=== PATIENT | female | born 1950 | race Caucasian/White ===

== ENCOUNTER → 2016-09-19 | Outpatient (CLI) | payer MEDICARE, BC ==
--- NOTE | 2016-09-20 14:26 | MM ---
Reason for exam: screening (asymptomatic). Last mammogram was performed 1 year and 1 month ago. History: Patient is postmenopausal and has history of other cancer at age 46. Family history of breast cancer in aunt. Physical Findings: A clinical breast exam by your physician is recommended on an annual basis and results should be correlated with mammographic findings. MG 3D Screening Mammo W/Cad Bilateral CC and MLO view(s) were taken. Prior study comparison: August 20, 2015, bilateral MG screening mammo w CAD. July 27, 2014, bilateral MG screening mammo w CAD. There are scattered fibroglandular densities. Finding: There are typically benign round calcifications in both breasts. There is no discrete abnormality. ASSESSMENT: Benign, BI-RAD 2 RECOMMENDATION: Routine screening mammogram of both breasts in 1 year.
== END | disposition home or self-care (01) ==
LOC: RADMAMWWP 09:23
PROVIDERS: ATTEND Internal Medicine Hematology & Oncology
DX: Z12.31 Encounter for screening mammogram for malignant neoplasm of breast (principal)
CPT/HCPCS: 77063; G0202

== ENCOUNTER → 2017-07-10 | Outpatient (CLI) | payer MEDICARE, BC ==
[2017-07-10 20:47] LABS: Blood Urea Nitrogen 22 mg/dL (7-17); Non-African American GFR(MDRD) >60 (>60 ml/min/1.73 sqM)
--- NOTE | 2017-07-10 23:09 | MR ---
EXAMINATION TYPE: MR knee RT wo/w con DATE OF EXAM: 07/10/2017 COMPARISON: NONE HISTORY: Rt knee pain/posterior, distal femoral lesion TECHNIQUE: Multiplanar, multisequence images of the knee is performed with 7.5 mL intravenous Gadavis t gadolinium contrast. FINDINGS: The anterior and posterior cruciate ligaments appear intact. There is mild knee joint effusion. There is mild increased signal in the inferior surface of the posterior horn medial meniscus. The lateral meniscus appears intact. The collateral ligaments are intact. There is very slight increased signal o n the T2 images in the subchondral medial tibial condyle. There is a 3.5 cm rounded lesion involving a large area of the lateral femoral condyle. The lesion edwards s a well-defined border with short zone of transition. There is mixed signal within the lesion. There is no bone edema seen surrounding the lesion. The contrast images show no pathologic enhancement. Th ere are large areas of decreased signal in the lesion on T1 and T2 images consistent with calcificati on. I do not have the plain x-ray for correlation. IMPRESSION: There is mild subchondral edema in the medial tibial condyle with a horizontal tear of the inferior s urface of the posterior horn of the medial meniscus. No evidence of ligamentous tear. Mild subcutaneo us edema over the medial collateral ligament. Nonenhancing lesion in the lateral femoral condyle with overall benign features. I would consider mor e likely a bone infarct. Small knee joint effusion.
== END | disposition home or self-care (01) ==
LOC: RADMRIMAIN 20:02
PROVIDERS: ATTEND Orthopaedic Surgery
DX: S83.241A Other tear of medial meniscus, current injury, right knee, initial encounter (principal)
CPT/HCPCS: 82565; 84520; 36415; 73723; A9581

== ENCOUNTER → 2017-08-28 | Outpatient (CLI) | payer MEDICARE, BC ==
--- NOTE | 2017-08-29 12:50 | ECHOF ---
Referral Reason:R01.1 Murmur MEASUREMENTS -------- HEIGHT: 154.9 cm WEIGHT: 78.5 kg BP: 143/71 RVIDd: 2.6 cm (< 3.3) IVSd: 1.0 cm (0.6 - 1.1) LVIDd: 4.9 cm (3.9 - 5.3) LVPWd: 1.1 cm (0.6 - 1.1) IVSs: 1.1 cm LVIDs: 4.2 cm LVPWs: 1.4 cm LAESV Index (A-L): 21.32 ml/m Ao Diam: 3.0 cm (2.0 - 3.7) AV Cusp: 0.8 cm (1.5 - 2.6) LA Diam: 3.4 cm (2.7 - 3.8) MV E Solomon: 1.05 m/s MV DecT: 171 ms MV A Solomon: 0.39 m/s MV E/A Ratio: 2.65 AV maxP.10 mmHg AV meanP.63 mmHg AR PHT: 424 ms RAP: 5.00 mmHg RVSP: 11.68 mmHg FINDINGS -------- Sinus rhythm. This was a technically adequate study. The left ventricular size is normal. Left ventricular wall thickness is normal. There is mild lani bal hypokinesis of LV . Overall left ventricular systolic function is mild-moderately impaired with , an EF between 40 - 45 %. The right ventricle is normal in size and function. Normal LA size by volume 22+/-6 ml/m2. The right atrium is normal in size. Aortic valve is trileaflet and is moderately thickened. There is [id number]-zn-[id number] aortic regurgitat ion. There is mild aortic stenosis present. Peak/mean gradient across the Aortic Valve is 15.10mm Hg / 9.63mmHg. The mitral valve leaflets are mildly thickened. There is trace to mild mitral regurgitation. Trace tricuspid regurgitation present. Right ventricular systolic pressure is normal at < 35 mmHg. There is no evidence of pulmonary hypertension. The pulmonic valve was not well visualized. The aortic root size is normal. Normal inferior vena cava with normal inspiratory collapse consistent with estimated right atrial pre ssure of 5 mmHg. The pericardium is normal. There is no pericardial effusion. CONCLUSIONS -------- 1. Sinus rhythm. 2. This was a technically adequate study. 3. The left ventricular size is normal. 4. Left ventricular wall thickness is normal. 5. There is mild global hypokinesis of LV . 6. Normal LA size by volume 22+/-6 ml/m2. 7. Aortic valve is trileaflet and is moderately thickened. 8. There is tzxl-ld-nlcbglhh aortic regurgitation. 9. There is mild aortic stenosis present. 10. Peak/mean gradient across the Aortic Valve is 15.10mmHg / 9.63mmHg. 11. The mitral valve leaflets are mildly thickened. 12. There is trace to mild mitral regurgitation. 13. Trace tricuspid regurgitation present. 14. Right ventricular systolic pressure is normal at < 35 mmHg. 15. There is no evidence of pulmonary hypertension. 16. The pulmonic valve was not well visualized. 17. The aortic root size is normal. 18. There is no pericardial effusion. CASH APPLICATIONS SPECIALIST: Neftali Martinez RDCS
== END | disposition home or self-care (01) ==
LOC: RADECHMAIN 15:45
PROVIDERS: ATTEND Internal Medicine
DX: I35.1 Nonrheumatic aortic (valve) insufficiency (principal); I35.0 Nonrheumatic aortic (valve) stenosis; I50.1 Left ventricular failure, unspecified
CPT/HCPCS: 93306

== ENCOUNTER → 2017-10-12 | Outpatient (CLI) | payer MEDICARE, BC ==
--- NOTE | 2017-10-12 16:33 | BD ---
EXAMINATION TYPE: MG DEXA axial skeleton. DATE OF EXAM: 10/12/2017 COMPARISON: 02/22/2004 CLINICAL HISTORY: Height: 61 IN Weight: 169 LBS FRAX RISK QUESTIONS: Alcohol (3 or more units per day): NO Family History (Parent hip fracture): NO Glucocorticoids (More than 3mos): NO (Ex: prednisone, prednisolone, methylprednisolone, dexamethasone, and hydrocortisone). History of Fracture in Adulthood: NO Secondary Osteoporosis: 1. Type 1 Diabetes: NO 2. Hyperthyroidism: NO 3. Menopause before 45: YES AGE 36 PART HYST 4. Malnutrition: NO 5. Chronic liver disease: NO Rheumatoid Arthritis: NO Current Tobacco Use: NO RISK FACTORS HISTORY OF: History of Wrist Fracture: YES LEFT When: AGE 16 Active: YES Postmenopausal woman: AGE 36 MEDICATIONS: Additional Medications: ADDEROL Additional History: LYMPHOMA WITH CHEMO AND RADIATION AGE 46 EXAM MEASUREMENTS: Bone mineral densitometry was performed using the Delectable System. Bone mineral density as measured about the Lumbar spine is: ----- L1-L4(G/cm2): 1.078 T Score Values are as follows: ----- L2: -0.7 ----- L3: -0.2 ----- L4: -1.1 ----- L1-L4: -0.8 Bone mineral density has: Decreased -3.3% since study of: 02/22/2004 Bone mineral density about the R hip (g/cm2): 0.964 Bone mineral density about the L hip (g/cm2): 0.923 T Score values are as follows: -----R Neck: -0.5 -----L Neck: -0.8 -----R Total: -0.1 -----L Total: -0.5 Bone mineral density has: Decreased -8.8% since study of: 02/22/2004 IMPRESSION: Normal (Values between +1 and -1 indicate normal bone mass). Consider repeating this study in 5 year s or sooner if there is some new clinical indication. NOTE: T-SCORE=SD OF THE YOUNG ADULT MEAN.
== END | disposition home or self-care (01) ==
LOC: RADBDWWP 06:56
PROVIDERS: ATTEND Obstetrics & Gynecology
DX: Z13.820 Encounter for screening for osteoporosis (principal)
CPT/HCPCS: 77080

== ENCOUNTER → 2017-12-07 | Outpatient (CLI) | payer MEDICARE, BC ==
--- NOTE | 2017-12-10 13:32 | MM ---
Reason for exam: screening (asymptomatic). Last mammogram was performed 1 year and 3 months ago. History: Patient is postmenopausal and has history of other cancer at age 46. Family history of breast cancer in aunt. Physical Findings: A clinical breast exam by your physician is recommended on an annual basis and results should be correlated with mammographic findings. MG 3D Screening Mammo W/Cad Bilateral CC and MLO view(s) were taken. Prior study comparison: September 19, 2016, bilateral MG 3d screening mammo w/cad. August 20, 2015, bilateral MG screening mammo w CAD. There are scattered fibroglandular densities. No significant changes when compared with prior studies. ASSESSMENT: Benign, BI-RAD 2 RECOMMENDATION: Routine screening mammogram of both breasts in 1 year.
== END | disposition home or self-care (01) ==
LOC: RADMAMWWP 07:04
PROVIDERS: ATTEND Internal Medicine
DX: Z12.31 Encounter for screening mammogram for malignant neoplasm of breast (principal)
CPT/HCPCS: 77063; 77067

== ENCOUNTER → 2018-01-14 | Day surgery (SDC) | payer MEDICARE, BC ==
[2018-01-11 08:26] VITALS: BMI 32.1
--- NOTE | 2018-01-13 20:02 | HP ---
HISTORY AND PHYSICAL CHIEF COMPLAINT: Fluid in both ears. HISTORY OF PRESENT ILLNESS: This patient is a 67-year-old female who was recently seen in my office complaining of a plugged sensation in both ears, which has been there for several weeks. At the time that the patient was seen in my office, clinical examination of the ears revealed chronic bilateral serous otitis media so-called glue ear. The patient was placed on several courses of oral antibiotics and oral steroids. On her last visit for a followup appointment, she stated that the plugged feeling had not improved. Clinical examination of the ears revealed the patient still had chronic bilateral serous otitis media so-called glue ear. It was recommended the patient undergo a bilateral myringotomy with insertion of ventilation tube. The patient was also advised that if in fact, at the time of the surgery, there was no fluid found in either middle ear space. Then, either no tube would be inserted or a pediatric Tytan tube would be inserted. Her procedure will be done either under general anesthesia or IV sedation, depending upon the anesthesia department's preference. PAST MEDICAL HISTORY: Past medical history reveals she has ALLERGIES TO VISCERAL. MEDICATIONS: Current medications include Adderall. PREVIOUS SURGERIES: Previous surgeries include tonsillectomy, adenoidectomy, biopsy of axillary lymph nodes, hysterectomy, arthroscopic knee surgery, and bunion surgery. REVIEW OF SYSTEMS: Completely unremarkable. PHYSICAL EXAMINATION: The patient is a 67-year-old female who was alert and cooperative. HEENT examination: Patient is normocephalic. Tympanic membranes are dull bilaterally with fluid in both middle ear spaces. Pupils are equal, round, and reactive to light and accommodation. Extraocular movements within normal limits. Intranasal examination reveals moderate septal deviation with compensatory hypertrophy of the inferior turbinates and a moderate amount of mucus on the mucous membranes and draining down the posterior pharynx. Examination of the oropharynx, cranial nerves 2 through 12 and remainder of the head and neck exam are within normal limits. Chest cardiovascular: Both lung camara are clear to percussion and auscultation. The patient is in regular sinus rhythm S1, S2 are present. No murmurs S3s or S4s. Peripheral pulses are bilaterally symmetrical and within normal limits. ABDOMEN: There is no evidence of any masses, megaly, or tenderness. ABDOMEN: Soft skin is unremarkable musculoskeletal and neurological are within normal limits. Pelvic and rectal exam is deferred at this time because the patient has this done on a regular basis at her family physician's office. The remainder of the physical exam is essentially unremarkable. IMPRESSION: Chronic bilateral serous otitis media. PLAN: The patient is the patient is scheduled for scheduled to undergo a bilateral myringotomy with insertion of ventilation tubes under either general anesthesia or IV sedation, depending upon the anesthesia department's preference. Attention RNs in the pre-surgical area: I have not ordered any pre-surgical prophylactic antibiotics for this patient. If the pharmacy department sends any pre- surgical prophylactic antibiotics to the pre-surgical area for this patient, that order should be cancelled and the medication should be returned to the pharmacy department. Please make sure that the patient's account is credited appropriately. I have discussed the risks, benefits and alternative therapies for the above-mentioned procedure and for both sedation/analgesia as well as necessary blood product administration, if indicated, as they pertain to this patient. The patient has indicated his or her understanding and acceptance of the risks and procedures discussed. MMADENL / MICHAELN: [id number] /
[~2018-01-14] MED LIST: EPINEPHrine (PF) 1 MG/ML AMP MISCELLANE ONE; LACTATED RINGERS 1,000 ML IV SCH; LIDOCAINE 1% 20 ML VIAL (10MG/ML) FOR IV START INTRADERMA ONE; MIDAZOLAM 2 MG/2 ML VIAL IV PRN; MIDAZOLAM 2 MG/2 ML VIAL ONE; OFLOXACIN 0.3% OTIC DROPS 5 ML BTL BOTH EARS ONE; ONDANSETRON 4 MG/2 ML VIAL IVP ONE; PROPOFOL 10 MG/ML 20 ML VIAL IV ONE; Pre Op ABX Message 1 EACH MISC MISCELLANE ONE; fentaNYL (PF) 50 MCG/ML 2 ML AMP IV PRN; fentaNYL (PF) 50 MCG/ML 2 ML AMP ONE
[2018-01-14 10:41] LABS: ALT 34 U/L (9-52); AST 22 U/L (14-36); Albumin 4.1 g/dL (3.5-5.0); Alkaline Phosphatase 98 U/L (38-126); Anion Gap 14 mmol/L; Blood Urea Nitrogen 19 mg/dL (7-17); Calcium 9.5 mg/dL (8.4-10.2); Carbon Dioxide 27 mmol/L (22-30); Chloride 103 mmol/L (98-107); Cholesterol 234 mg/dL (<200); Glucose 100 mg/dL (74-99); HDL Cholesterol 47 mg/dL (40-60); LDL Cholesterol,Calculated 160 mg/dL (0-99); Potassium 4.3 mmol/L (3.5-5.1); Sodium 144 mmol/L (137-145); Total Bilirubin 0.4 mg/dL (0.2-1.3); Total Protein 6.9 g/dL (6.3-8.2); Triglycerides 133 mg/dL (<150)
[2018-01-14 12:06] VITALS: TEMP 96.8
[2018-01-14 12:32] VITALS: BP 116/72
[2018-01-14 12:51] VITALS: PULSE 84; RESP 16
--- NOTE | 2018-01-15 03:09 | OP ---
OPERATIVE REPORT DATE OF SURGERY: 01/14/2018. PREOP DIAGNOSIS: Chronic bilateral serous otitis media. POSTOP DIAGNOSIS: Chronic bilateral serous otitis media. ANESTHESIA: General anesthesia. OPERATIVE PROCEDURE: Bilateral myringotomy with insertion of pediatric Titanium ventilation tubes. SURGEON: Dr. Orozco. COMPLICATIONS: None. DESCRIPTION OF PROCEDURE: The patient was placed on the Operating table in the supine position after uneventful induction and IV sedation, satisfactory general anesthesia was obtained. Next, the operating microscope was brought into position over the patient?s right ear where after insertion of a #3 aural speculum, the external canal was cleansed of all wax and debris. The myringotomy knife was used to make an incision in the anterior inferior quadrant of the right tympanic membrane. The middle ear space was suctioned free of all fluid and a 1.1 mm Doni bobbin ventilation tube was inserted without any difficulty. Attention was then directed to the left ear where the same procedure was carried out using the operating microscope, #3 aural speculum, the external auditory canal was cleansed of all wax and debris. The myringotomy knife was used to make an incision in the anterior inferior quadrant of the left tympanic membrane and the middle ear space was suctioned free of all fluid. A 1.1 mm Doni bobbin ventilation tube was inserted without any difficulty. At this point, the procedure was terminated. There were no intraoperative complications. The patient tolerated the procedure well and was returned to the Recovery Room in satisfactory condition. MMODL / IJN: [id number] /
== END | disposition home or self-care (01) ==
LOC: OR 08:28
PROVIDERS: ATTEND Otolaryngology
DX: H65.23 Chronic serous otitis media, bilateral (principal); Z88.8 Allergy status to other drugs, medicaments and biological substances; Z79.899 Other long term (current) drug therapy
CPT/HCPCS: 80061; 80053; 69436; J2250; J2405; J0171; J3010; J2704

== ENCOUNTER → 2018-02-21 | Outpatient (CLI) | payer MEDICARE, BC ==
[2018-02-21 13:18] LABS: HCT 41.7 % (34.0-46.0); HGB 14.1 gm/dL (11.4-16.0); MCH 29.8 pg (25.0-35.0); MCHC 33.8 g/dL (31.0-37.0); MCV 88.4 fL (80.0-100.0); Mean Platelet Volume 6.8; Platelet Count 233 k/uL (150-450); RBC 4.72 m/uL (3.80-5.40); RDW 13.3 % (11.5-15.5); WBC 7.2 k/uL (3.8-10.6)
[2018-02-21 13:28] LABS: Anion Gap 9 mmol/L; Blood Urea Nitrogen 16 mg/dL (7-17); Carbon Dioxide 28 mmol/L (22-30); Chloride 102 mmol/L (98-107); Potassium 4.8 mmol/L (3.5-5.1); Sodium 139 mmol/L (137-145)
== END | disposition home or self-care (01) ==
LOC: LABWHC1 12:47
PROVIDERS: ATTEND Internal Medicine Interventional Cardiology
DX: Z01.812 Encounter for preprocedural laboratory examination (principal); I42.9 Cardiomyopathy, unspecified
CPT/HCPCS: 36415; 80051; 82565; 84520; 85027

== ENCOUNTER → 2018-03-07 | Day surgery (SDC) | payer MEDICARE, BC ==
[2018-02-27 14:28] VITALS: BMI 31.9
[~2018-03-07] MED LIST changes: +ALPRAZolam 0.25 MG TAB PO PRN; +ALPRAZolam 0.5 MG TAB PO PRN; +ASPIRIN 325 MG TAB PO STA; +ATORVASTATIN 40 MG TAB PO SCH; +ATORVASTATIN 80 MG TAB PO STA; -EPINEPHrine (PF) 1 MG/ML AMP MISCELLANE ONE; +HEPARIN SODIUM 1,000 UN/ML (10ML VL) IV ONE; +HEPARIN SODIUM 1,000 UN/ML (10ML VL) ONE; +IOPAMIDOL-370 125ML BTL INJ ONE; -LACTATED RINGERS 1,000 ML IV SCH; -LIDOCAINE 1% 20 ML VIAL (10MG/ML) FOR IV START INTRADERMA ONE; +LIDOCAINE 1% INJ 10MG/ML (20 ML MDV) SQ ONE; +METOPROLOL PO SCH; -MIDAZOLAM 2 MG/2 ML VIAL IV PRN; +MIDAZOLAM 2 MG/2 ML VIAL IVP ONE; +NITROGLYCERIN SL TABS 0.4 MG TAB SUBLINGUAL PRN; +NON-FORMULARY DRUG (Dextroamphetamine/Amphetamine [Adderall] 5 MG) PO SCH; -OFLOXACIN 0.3% OTIC DROPS 5 ML BTL BOTH EARS ONE; -ONDANSETRON 4 MG/2 ML VIAL IVP ONE; -PROPOFOL 10 MG/ML 20 ML VIAL IV ONE; -Pre Op ABX Message 1 EACH MISC MISCELLANE ONE; +RX INFO: IV CONTRAST WAS GIVEN 1 EACH MISC MISCELLANE PRN; +SODIUM CHLORIDE 0.9% 1,000 ML IV SCH; +SODIUM CHLORIDE 0.9% 1,000 ML in EMPTY BAG 1 BAG IV ONE; +diphenhydrAMINE 50 MG/ML 1 ML VIAL IVP ONE; +diphenhydrAMINE 50 MG/ML 1 ML VIAL ONE; +fentaNYL (PF) 50 MCG/ML 2 ML AMP IV ONE; -fentaNYL (PF) 50 MCG/ML 2 ML AMP IV PRN
[2018-03-07 07:07] VITALS: RESP 18
[2018-03-07] MEDS: VERAPAMIL SYRINGE (5 MG/10 ML) INTRAARTER ONE ×2 (07:35→07:48)
--- NOTE | 2018-03-07 08:44 | CC ---
CARDIAC CATHETERIZATION REPORT Mrs. Cruz is a 67-year-old female with history of hyperlipidemia who was found to have evidence of cardiomyopathy and abnormal myocardial perfusion imaging. In view of that, recommendation was made regarding cardiac catheterization. The procedure as well as the risks and the complications were discussed with the patient who is in full understanding and agreement. PROCEDURE: Patient was brought to geophysical laboratory director in a fasting semi-sedated state after receiving fentanyl and Benadryl and achieving moderate conscious sedated state. Using Xylocaine anesthesia and Seldinger technique, a 6-Stateless sheath was introduced in the right radial artery. Selective right and left coronary angiography performed using 5-Stateless 3.5 bend right and left Home catheter. Multiple views of the coronary artery including hemiaxial views were obtained. Following that, a 5-Stateless tight pigtail catheter was introduced left ventricle and a 30-degree MCCLOUD view of the left ventricle was obtained. Following that, catheter and sheaths were removed. Hemostasis was obtained with deployment of a TR band. There was no immediate complication. Patient was returned to her room in stable condition. Of note, the patient received 4000 units of intravenous heparin as well as intra-arterial verapamil. FINDINGS: LEFT MAIN: This is a large-sized vessel bifurcating into left circumflex, left anterior descending artery. Left main coronary artery has no evidence of high-grade stenosis. LEFT ANTERIOR DESCENDING ARTERY: This is a large-sized vessel reaching toward the apex with a wraparound apex segment. The proximal LAD has mild intimal plaque of 10% to 20%. The rest of the vessel has no evidence of high-grade stenosis. LEFT CIRCUMFLEX: This is a nondominant vessel, large in caliber giving rise to 4 obtuse marginal branches, the third one is the largest in caliber. The left circumflex in mid segment has a 20% to 30% plaque. The rest of the vessel has no high-grade stenosis. RIGHT CORONARY ARTERY: This is a large dominant vessel bifurcating into PDA and posterolateral segment branches. The right coronary artery in mid segment has mild intimal disease of 20%. The rest of the vessel has no high-grade stenosis. LEFT VENTRICULOGRAM: Left ventriculogram was performed in 30-degree MCCLOUD view and revealed a normal left ventricular size. The ejection fraction is estimated at 50%. There was no significant mitral regurgitation. HEMODYNAMICS: There was no gradient across the aortic valve. The left ventricle end- diastolic pressure was 16 to 20 mmHg. CONCLUSION: 1. Mild triple-vessel coronary disease. 2. Minimally impaired left ventricular systolic function. RECOMMENDATION: In view of finding anatomy, I recommend continue medical therapy with aggressive coronary risk modification that has been initiated. Those findings and recommendation were discussed with the patient and her family. Duration of procedure is 24 minutes. MORA / MICHAELN: [id number] /
--- NOTE | 2018-03-07 08:50 | LTR ---
March 07, 2018 Re: Cruz Surya Dear Dr. Abdul: I had the opportunity to perform cardiac catheterization on Mrs. Cruz at [facility] on the 07 of March and a full copy of the procedure note will be forwarded to you. In brief, she was found to have mild triple-vessel coronary artery disease without any evidence of high-grade stenosis and based on those findings recommended to continue medical therapy with aggressive coronary risk modifications that have been initiated. Thank you again for allowing me the opportunity to participate in her care. Please feel free to call for any questions. Sincerely yours, MD MORA Schwartz / MICHAELN: [id number] /
[2018-03-07 08:56] VITALS: TEMP 97.8
[2018-03-07 12:36] VITALS: BP 117/58; PULSE 76
== END | disposition home or self-care (01) ==
LOC: CATHCVL 06:20
PROVIDERS: ATTEND Internal Medicine Interventional Cardiology
DX: I25.10 Atherosclerotic heart disease of native coronary artery without angina pectoris (principal); R94.39 Abnormal result of other cardiovascular function study; I42.9 Cardiomyopathy, unspecified; I35.0 Nonrheumatic aortic (valve) stenosis; E78.2 Mixed hyperlipidemia; Z85.9 Personal history of malignant neoplasm, unspecified; Z92.21 Personal history of antineoplastic chemotherapy; Z79.899 Other long term (current) drug therapy; Z88.8 Allergy status to other drugs, medicaments and biological substances
CPT/HCPCS: 93458; C1894; C1769 ×2; J2250; J1200; J2001; J3010; J1644; Q9967

== ENCOUNTER → 2018-04-11 | Outpatient (CLI) | payer MEDICARE, BC ==
[2018-04-11 08:09] LABS: ALT 31 U/L (9-52); AST 22 U/L (14-36); Alkaline Phosphatase 103 U/L (38-126); Anion Gap 8 mmol/L; Blood Urea Nitrogen 18 mg/dL (7-17); Calcium 9.4 mg/dL (8.4-10.2); Carbon Dioxide 28 mmol/L (22-30); Chloride 105 mmol/L (98-107); HDL Cholesterol 49 mg/dL (40-60); Potassium 4.4 mmol/L (3.5-5.1); Sodium 141 mmol/L (137-145); Total Bilirubin 0.4 mg/dL (0.2-1.3)
[2018-04-11 08:25] LABS: Albumin 4.1 g/dL (3.5-5.0); Cholesterol 170 mg/dL (<200); Glucose 107 mg/dL (74-99); LDL Cholesterol,Calculated 96 mg/dL (0-99); Total Protein 6.7 g/dL (6.3-8.2); Triglycerides 123 mg/dL (<150)
== END | disposition home or self-care (01) ==
LOC: LABWHC1 07:11
PROVIDERS: ATTEND Internal Medicine Interventional Cardiology
DX: E78.2 Mixed hyperlipidemia (principal)
CPT/HCPCS: 36415; 80053; 80061

== ENCOUNTER → 2018-12-18 | Outpatient (CLI) | payer MEDICARE, BC ==
--- NOTE | 2018-12-18 14:02 | MM ---
Reason for exam: screening (asymptomatic). Last mammogram was performed 1 year ago. History: Patient is postmenopausal and has history of other cancer at age 46. Family history of breast cancer in aunt. Physical Findings: A clinical breast exam by your physician is recommended on an annual basis and results should be correlated with mammographic findings. MG 3D Screening Mammo W/Cad Bilateral CC and MLO view(s) were taken. Prior study comparison: December 07, 2017, bilateral MG 3d screening mammo w/cad. September 19, 2016, bilateral MG 3d screening mammo w/cad. There are scattered fibroglandular densities. There are benign appearing round calcifications bilaterally. There is no discrete abnormality. ASSESSMENT: Benign, BI-RAD 2 RECOMMENDATION: Routine screening mammogram of both breasts in 1 year.
== END ==
LOC: RADMAMWWP 08:31
PROVIDERS: ATTEND Internal Medicine Hematology & Oncology
DX: Z12.31 Encounter for screening mammogram for malignant neoplasm of breast (principal)
CPT/HCPCS: 77063; 77067

== ENCOUNTER → 2020-05-06 | Outpatient (CLI) | payer MEDICARE ==
--- NOTE | 2020-05-12 09:20 | MM ---
Reason for exam: screening (asymptomatic). Last mammogram was performed 1 year and 5 months ago. History: Patient is postmenopausal and has history of other cancer at age 46. Family history of breast cancer in aunt. Physical Findings: A clinical breast exam by your physician is recommended on an annual basis and results should be correlated with mammographic findings. MG 3D Screening Mammo W/Cad Bilateral CC and MLO view(s) were taken. Prior study comparison: December 18, 2018, bilateral MG 3d screening mammo w/cad. December 07, 2017, bilateral MG 3d screening mammo w/cad. There are scattered fibroglandular densities. Benign appearing calcifications in the right breast. ASSESSMENT: Benign, BI-RAD 2 RECOMMENDATION: Routine screening mammogram of both breasts in 1 year.
== END | disposition home or self-care (01) ==
LOC: RADMAMWWP 14:54
PROVIDERS: ATTEND Internal Medicine Hematology & Oncology
DX: Z12.31 Encounter for screening mammogram for malignant neoplasm of breast (principal)
CPT/HCPCS: 77063; 77067

== ENCOUNTER → 2021-08-04 | Outpatient (CLI) | payer MEDICARE ==
--- NOTE | 2021-08-05 11:44 | MM ---
Reason for exam: screening (asymptomatic). Last mammogram was performed 1 year and 3 months ago. History: Patient is postmenopausal and has history of other cancer at age 46. Family history of breast cancer in aunt. Physical Findings: A clinical breast exam by your physician is recommended on an annual basis and results should be correlated with mammographic findings. MG 3D Screening Mammo W/Cad Bilateral CC and MLO view(s) were taken. Prior study comparison: May 06, 2020, bilateral MG 3d screening mammo w/cad. December 18, 2018, bilateral MG 3d screening mammo w/cad. There are scattered fibroglandular densities. There are benign appearing round calcifications bilaterally. There is no discrete abnormality. ASSESSMENT: Benign, BI-RAD 2 RECOMMENDATION: Routine screening mammogram of both breasts in 1 year.
== END | disposition home or self-care (01) ==
LOC: RADMAMWWP 10:15
PROVIDERS: ATTEND Internal Medicine Hematology & Oncology
DX: Z12.31 Encounter for screening mammogram for malignant neoplasm of breast (principal)
CPT/HCPCS: 77063; 77067

== ENCOUNTER → 2021-11-23 | Outpatient (CLI) | payer MEDICARE ==
--- NOTE | 2021-11-23 16:53 | BD ---
EXAMINATION TYPE: Axial Bone Density DATE OF EXAM: 11/23/2021 COMPARISON: 2017 CLINICAL HISTORY: 71 years year old Female. ICD-10 CODE: N95.1 POST MENOPAUSAL SYMPTOMS Height: 5'1 Weight: 170 FRAX RISK QUESTIONS: . History of Fracture in Adulthood: Y Secondary Osteoporosis: 3. 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 Bone mineral density as measured about the Lumbar spine is: ----- L1-L4(G/cm2): 1.151 T Score Values are as follows: ----- L1: -1.5 ----- L2: 0.0 ----- L3: 0.4 ----- L4: -0.1 ----- L1-L4: -0.2 Bone mineral density has: Increased 8.5% since study of: 10/12/2017 Bone mineral density about the R hip (g/cm2):0.888 Bone mineral density about the L hip (g/cm2): 0.874 T Score values are as follows: -----R Neck:-1.1 -----L Neck: -1.2 -----R Total: -0.6 -----L Total: -0.7 Bone mineral density has: Decreased -4.7% since study of: 10/12/2017 FRAX%s: The graph provided illustrates a chance for a major osteoporotic fx and a chance for the hips probability for fx in 10 years time. IMPRESSION: Osteopenia (T Score between -2.5 and -1). There is slightly increased risk of fracture and the patient may be considered for treatment. Re-Screen 2-5 years. NOTE: T-SCORE=SD OF THE YOUNG ADULT MEAN.
== END | disposition home or self-care (01) ==
LOC: RADBDWWP 08:02
PROVIDERS: ATTEND Obstetrics & Gynecology
DX: N95.1 Menopausal and female climacteric states (principal); M85.80 Other specified disorders of bone density and structure, unspecified site
CPT/HCPCS: 77080

== ENCOUNTER → 2022-09-04 | Outpatient (CLI) | payer MEDICARE ==
--- NOTE | 2022-09-05 06:39 | MM ---
Reason for Exam: Screening (asymptomatic). Last mammogram was performed 1 year(s) and 1 month(s) ago. Patient History: Menarche at age 13. First Full-Term at age 18. Hysterectomy at age 38. Postmenopausal. Other cancer, age 46. Maternal aunt had breast cancer. Risk Values: Denisse 5 year model risk: 1.2%. NCI Lifetime model risk: 3.7%. Prior Study Comparison: 12/18/2018 Bilateral Screening Mammogram, [facility]. 05/06/2020 Bilateral Screening Mammogram, [facility]. 08/04/2021 Bilateral Screening Mammogram, [facility]. Tissue Density: There are scattered fibroglandular densities. Findings: Analyzed By CAD. There are a few scattered small benign-appearing round calcifications redemonstrated throughout the bilateral breasts. There is no suspicious new group of microcalcifications or new suspicious mass in either breast. Overall Assessment: Benign, BI-RAD 2 Management: Screening Mammogram of both breasts in 1 year. A clinical breast exam by your physician is recommended on an annual basis and results should be correlated with mammographic findings. Electronically signed and approved by: Thompson Gamez M.D.
== END | disposition home or self-care (01) ==
LOC: RADMAMWWP 07:45
PROVIDERS: ATTEND Internal Medicine Hematology & Oncology
DX: Z12.31 Encounter for screening mammogram for malignant neoplasm of breast (principal); Z78.0 Asymptomatic menopausal state; Z80.3 Family history of malignant neoplasm of breast
CPT/HCPCS: 77063; 77067

== ENCOUNTER → 2022-10-04 | Outpatient (CLI) | payer MEDICARE ==
--- NOTE | 2022-10-04 07:58 | US ---
EXAMINATION TYPE: US abdomen complete DATE OF EXAM: 10/04/2022 COMPARISON: NONE CLINICAL HISTORY: [id number] RT LOWER QUAD PAIN. TECHNIQUE: Multiple sonographic images of the abdomen are obtained. FINDINGS: EXAM MEASUREMENTS: Liver Length: 10.3 cm Gallbladder Wall: 0.17 cm CBD: 0.55 cm Spleen: 9.5 cm Right Kidney: 10.4 x 4.6 x 4.9 cm Left Kidney: 9.8 x 5.1 x 4.7 cm Pancreas: Tail obscured by overlying bowel gas Liver: wnl Gallbladder: wnl Evidence for sonographic Bonilla's sign: No CBD: wnl Spleen: wnl Right Kidney: wnl Left Kidney: wnl Upper IVC: wnl Abd Aorta: wnl The liver is homogenous. The intrahepatic portion of the IVC and proximal abdominal aorta are within normal limits. There is no evidence of cholelithiasis. Common bile duct is unremarkable. The visu alized portions of the pancreas are homogenous. The spleen is unremarkable. Kidneys are symmetric a nd free of hydronephrosis. No renal lesions are seen. IMPRESSION: No significant abnormality seen.
--- NOTE | 2022-10-04 07:59 | US ---
EXAMINATION TYPE: US pelvis complete transvag DATE OF EXAM: 10/04/2022 COMPARISON: NONE CLINICAL HISTORY: R1031 RT LOWER QUAD PAIN. Right pelvic pain x 4 months. TECHNIQUE: . Transabdominal sonographic images of the pelvis were acquired. Transvaginal sonographi c images were medically necessary to better assess the following anatomy: Date of LMP: Postmenopausal, hysterectomy. EXAM MEASUREMENTS: Uterus: Surgically absent Endometrial Stripe: Surgically absent Right Ovary: 1.3 x 1.2 x 1.4 cm Left Ovary: 3.1 2.5 x 3.1 cm 1. Uterus: Surgically absent 2. Endometrium: Surgically absent 3. Right Ovary: wnl 4. Left Ovary: Complex cystic structure, 2.2 x 1.9 x 2.3cm 5. Bilateral Adnexa: wnl 6. Posterior cul-de-sac: wnl IMPRESSION: Complex cystic structure left ovary is nonspecific. Neoplasm is not excluded. Direct visualization or short-term follow-up is advised.
== END | disposition home or self-care (01) ==
LOC: RADUSWWP 06:42
PROVIDERS: ATTEND Internal Medicine
DX: R10.31 Right lower quadrant pain (principal); N83.202 Unspecified ovarian cyst, left side; R10.2 Pelvic and perineal pain
CPT/HCPCS: 76700; 76830; 76856

== ENCOUNTER → 2022-12-19 | Outpatient (CLI) | payer MEDICARE ==
--- NOTE | 2022-12-19 12:02 | US ---
EXAMINATION TYPE: US pelvis complete transvag DATE OF EXAM: 12/19/2022 COMPARISON: Pelvic ultrasound October 04, 2022 CLINICAL INDICATION: Female, 72 years old with history of N83.299 LT OVARIAN CYST; Follow up left ova hebert cyst. No left sided pain. Uterus removed. TECHNIQUE: Transvaginal (TV) and Transabdominal (TA) . Transabdominal sonographic images of the pel vis were acquired. Transvaginal sonographic images were medically necessary to better assess the fol lowing anatomy: Ovary Date of LMP: Unknown EXAM MEASUREMENTS: Left Ovary: 2.7 x 2.6 x 2.3 cm 1. Uterus: Surgically absent 2. Endometrium: Surgically absent 3. Right Ovary: Obscured by overlying bowel gas 4. Left Ovary: Complex cystic lesion = 2.2 x 2.5 x 2.0 cm with internal echoes and a echogenic focal lesion = 0.8 x 0.8 x 0.7 cm 5. Bilateral Adnexa: no free fluid 6. Posterior cul-de-sac: no free fluid Uterus is surgically absent. No free fluid. Right ovary not seen on today's study. Left ovary redemonstrates 2.2 x 2.5 x 2.0 cm hypoechoic round lesion with 8mm hyperechoic peripheral focus without significant vascularity and increased through tr ansmission. IMPRESSION: As above. Nonsimple 2.5 cm cyst. O-Rads 2 lesion almost certainly benign. Follow-up ultr asound in one year time is advised to reassess.
== END | disposition home or self-care (01) ==
LOC: RADUSWWP 10:06
PROVIDERS: ATTEND Obstetrics & Gynecology
DX: N83.292 Other ovarian cyst, left side (principal)
CPT/HCPCS: 76830; 76856

== ENCOUNTER → 2023-11-26 | Outpatient (CLI) | payer MEDICARE ==
--- NOTE | 2023-11-26 09:27 | MM ---
Reason for Exam: Screening (asymptomatic). Last mammogram was performed 1 year(s) and 2 month(s) ago. Patient History: Menarche at age 13. First Full-Term at age 18. Hysterectomy at age 38. Postmenopausal. Other cancer, age 46. Maternal aunt had breast cancer, age 40. Maternal cousin had breast cancer, age 40. Risk Values: Denisse 5 year model risk: 1.3%. NCI Lifetime model risk: 3.3%. Prior Study Comparison: 05/06/2020 Bilateral Screening Mammogram, [facility]. 08/04/2021 Bilateral Screening Mammogram, [facility]. 09/04/2022 Bilateral MG 3D screening mammo w/cad, [facility]. Tissue Density: There are scattered areas of fibroglandular density. Findings: Analyzed By CAD. Finding 1: Asymmetry. Laterality: Left. There is no suspicious group of microcalcifications or new suspicious mass in either breast. Benign calcifications noted. Overall Assessment: Benign, BI-RAD 2 Management: Screening Mammogram of both breasts in 1 year. . Patient should continue monthly self-breast exams. A clinical breast exam by your physician is recommended on an annual basis. This exam should not preclude additional follow-up of suspicious palpable abnormalities. Note on Denisse scores and lifetime risk: 1. A Denisse score greater than 3% is considered moderate risk. If this is the case, consider specialist referral to assess eligibility for a risk reducing agent. 2. If overall lifetime risk for the development of breast cancer is 20% or higher, the patient may qualify for future screening with alternating mammogram and breast MRI. Electronically signed and approved by: Devan Morton M.D. Radiologis
--- NOTE | 2023-11-26 13:47 | BD ---
EXAMINATION TYPE: Axial Bone Density DATE OF EXAM: 11/26/2023 CLINICAL HISTORY: 73 years old Female. ICD-10 CODE: M85.88 OTH DISRD OF BONE DENSITY Height: 61 Weight: 167 FRAX RISK QUESTIONS: Secondary Osteoporosis: yes 3. Menopause before 45: yes RISK FACTORS HISTORY OF: lymphoma 24 yrs ago, hx of chemo and radiation History of Wrist Fracture: yes, right, childhood MEDICATIONS: hx of chemo and radiation, bp meds, statin for cholesterol EXAM MEASUREMENTS: Bone mineral densitometry was performed using the [employer] System. Bone mineral density as measured about the Lumbar spine is: ----- L1-L4(G/cm2): 1.101 T Score Values are as follows: ----- L1: -1.5 ----- L2: -0.6 ----- L3: -0.1 ----- L4: -0.6 ----- L1-L4: -0.7 Z Score Values are as follows: ----- L1: -0.2 ----- L2: 0.7 ----- L3: 1.3 ----- L4: 0.7 ----- L1-L4: 0.7 Bone mineral density has: Decreased -4.3% since study of: 11.23.2022 Bone mineral density about the R hip (g/cm2): 0.904 Bone mineral density about the L hip (g/cm2): 0.917 T Score values are as follows: -----R Neck: -1.0 -----L Neck: -1.5 -----R Total: -0.8 -----L Total: -0.7 Z Score values are as follows: -----R Neck: 0.5 -----L Neck: 0.1 -----R Total: 0.5 -----L Total: 0.6 Bone mineral density has: Decreased -1.6% since study of: 11.23.2022 FRAX%s: The graph provided illustrates a 10.1% chance for a major osteoporotic fx and a 1.6% chance f or the hips probability for fx in 10 years time. IMPRESSION: Osteopenia (T Score between -2.5 and -1). There is slightly increased risk of fracture and the patient may be considered for treatment. Re-Screen 2-5 years. NOTE: T-SCORE=SD OF THE YOUNG ADULT MEAN.
== END | disposition home or self-care (01) ==
LOC: RADMAMWWP 07:20
PROVIDERS: ATTEND Obstetrics & Gynecology
DX: Z12.31 Encounter for screening mammogram for malignant neoplasm of breast (principal); M85.88 Other specified disorders of bone density and structure, other site; Z78.0 Asymptomatic menopausal state; Z80.3 Family history of malignant neoplasm of breast
CPT/HCPCS: 77063; 77067; 77080

== ENCOUNTER → 2024-05-16 | Outpatient (CLI) | payer MEDICARE ==
--- NOTE | 2024-05-16 12:42 | US ---
EXAMINATION TYPE: US kidneys/renal and bladder DATE OF EXAM: 05/16/2024 COMPARISON: Abdominal ultrasound 10/04/2022 CLINICAL INDICATION: Female, 73 years old with history of R31.29 MICRO HEMATURIA; episode of hematuri a EXAM MEASUREMENTS: Right Kidney: 9.4x4.1x4.7 cm Left Kidney: 10.4x4.7x4.7 cm Right Kidney: wnl Left Kidney: wnl bladder: not fully distended Bilateral Jets seen: No There is no evidence for hydronephrosis at this point in time. Cortical medullary differentiation is maintained bilaterally. No nephrolithiasis is seen. No masses are identified. The urinary bladder i s underdistended and anechoic. IMPRESSION: No hydronephrosis or nephrolithiasis.
== END | disposition home or self-care (01) ==
LOC: RADUSWWP 08:41
PROVIDERS: ATTEND Internal Medicine
DX: R31.29 Other microscopic hematuria (principal)
CPT/HCPCS: 76770

== ENCOUNTER → 2024-08-01 | Outpatient (CLI) | payer MEDICARE ==
--- NOTE | 2024-08-04 18:17 | P.PCN ---
Date of Procedure: 08/31/24 Operative Findings: Home sleep study test report Date of service is 08/01/2024 History This is a 74-year-old female patient who was referred to me for sleep apnea evaluation. The patient has snoring. No witnessed apneas. No major hypersomnia or sleepiness. [place] score is at 1. The patient has a body mass index of 31.2. The patient has a slight overbite and has a Mallampati class I. The patient has history of lymphoma. The patient was treated with systemic chemotherapy and radiation therapy. 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 Patient is also known to have coronary disease and hyperlipidemia. Pertinent physical findings The patient has a body mass index of 31.2. The weight is 165 pounds. Technical description The [employer] system was used to complete his home sleep study. This is a type III home sleep study evaluation. The total recording duration was 8 hours and 45 minutes. The study was started at 10:08 PM and ended at 6:35 AM. There was a total of 8 hours and 26 minutes of flow monitoring and 8 hours and 25 minutes of oxygen saturation monitoring. This was an adequate study Results Respiratory evaluation showed a total of 12 obstructive apneas and 36 obstructive hypopneas. The resulting AHI was 5.7. Oxygenation analysis The patient had a baseline pulse ox of 95% at rest while awake. Average pulse ox during sleep was 94% and the minimum pulse ox was 80%. The patient spent only 2 minutes of the sleep time below pulse ox of 89% Cardiac summary Average heart rate was 65 with a minimum heart of 58 and a maximum heart rate of 80. Assessment Snoring with mild LISA (AHI of 5.7) No significant nocturnal oxygen desaturation No hypersomnia Cardiomyopathy-chrmotherapy induced, EF of 45% Malignant lymphoma coronary artery disease Hyperlipidemia Plan No need for CPAP therapy Weight loss Sleep on the side Maintain good sleep hygiene measures Follow up with the PCP.
== END ==
LOC: 3 N SLEEP 10:54
PROVIDERS: ATTEND Internal Medicine Critical Care Medicine
DX: G47.33 Obstructive sleep apnea (adult) (pediatric) (principal); I25.10 Atherosclerotic heart disease of native coronary artery without angina pectoris; C85.90 Non-Hodgkin lymphoma, unspecified, unspecified site; E78.5 Hyperlipidemia, unspecified; I42.9 Cardiomyopathy, unspecified; Z88.8 Allergy status to other drugs, medicaments and biological substances

== ENCOUNTER → 2025-01-05 | Outpatient (CLI) | payer MEDICARE ==
--- NOTE | 2025-01-05 12:04 | MM ---
Reason for Exam: Screening (asymptomatic). Last mammogram was performed 1 year(s) and 2 month(s) ago. Patient History: Menarche at age 13. First Full-Term at age 18. Hysterectomy at age 38. Postmenopausal. Other cancer, age 46. Maternal aunt had breast cancer, age 40. Maternal cousin had breast cancer, age 40. Risk Values: Denisse 5 year model risk: 1.3%. NCI Lifetime model risk: 3.1%. Prior Study Comparison: 08/04/2021 Bilateral Screening Mammogram, [facility]. 09/04/2022 Bilateral MG 3D screening mammo w/cad, [facility]. 11/26/2023 Bilateral MG 3D screening mammo w/cad, [facility]. Tissue Density: There are scattered areas of fibroglandular density. Findings: Analyzed By CAD. Right breast: There is no suspicious group of microcalcifications or new suspicious mass. Left breast: There is no suspicious group of microcalcifications or new suspicious mass. Overall Assessment: Negative, BI-RAD 1 Management: Screening Mammogram of both breasts in [address] [facility] will attempt to contact patient to return for supplemental views and ultrasound if indicated. Patient should continue monthly self-breast exams. A clinical breast exam by your physician is recommended on an annual basis. This exam should not preclude additional follow-up of suspicious palpable abnormalities. Note on Denisse scores and lifetime risk: 1. A Denisse score greater than 3% is considered moderate risk. If this is the case, consider specialist referral to assess eligibility for a risk reducing agent. 2. If overall lifetime risk for the development of breast cancer is 20% or higher, the patient may qualify for future screening with alternating mammogram and breast MRI. [facility], , 01/05/2025 12:01 PM. Electronically signed and approved by: Ras Ogden DO
== END | disposition home or self-care (01) ==
LOC: RADMAMWWP 09:01
PROVIDERS: ATTEND Internal Medicine
DX: Z12.31 Encounter for screening mammogram for malignant neoplasm of breast (principal); R92.323 Mammographic fibroglandular density, bilateral breasts; Z78.0 Asymptomatic menopausal state; Z80.3 Family history of malignant neoplasm of breast
CPT/HCPCS: 77063; 77067

== ENCOUNTER → 2025-01-20 | Outpatient (CLI) | payer MEDICARE ==
[2025-01-20 16:49] LABS: NT-Pro-B-Type Natriuretic Pept 700 pg/mL (0-125)
[2025-01-20 16:51] LABS: ALT 20 U/L (8-44); AST 27 U/L (13-35); Albumin 4.2 g/dL (3.8-4.9); Albumin/Globulin Ratio 1.62 Ratio (1.60-3.17); Alkaline Phosphatase 107 U/L (41-126); BUN/Creat Ratio 24.25 Ratio (12.00-20.00); Blood Urea Nitrogen 19.4 mg/dL (9.0-27.0); Calcium 9.4 mg/dL (8.7-10.3); Carbon Dioxide 23.7 mmol/L (21.6-31.8); Chloride 104 mmol/L (96-109); Globulin 2.6 g/dL (1.6-3.3); Glucose 103 mg/dL (70-110); Potassium 4.8 mmol/L (3.5-5.5); Sodium 139 mmol/L (135-145); Total Bilirubin 0.4 mg/dL (0.3-1.2); Total Protein 6.8 g/dL (6.2-8.2)
== END | disposition home or self-care (01) ==
LOC: LABWHC1 08:25
PROVIDERS: ATTEND Internal Medicine Interventional Cardiology
DX: I42.8 Other cardiomyopathies (principal); I35.0 Nonrheumatic aortic (valve) stenosis; I50.22 Chronic systolic (congestive) heart failure
CPT/HCPCS: 36415; 80053; 83880

== ENCOUNTER → 2025-02-27 | Day surgery (SDC) | payer MEDICARE ==
[~2025-02-27] MED LIST changes: -ASPIRIN 325 MG TAB PO STA; +BENZOCAINE SPRAY 1 EACH MM PRN; +EZETIMIBE 10 MG TAB PO SCH; -HEPARIN SODIUM 1,000 UN/ML (10ML VL) IV ONE; -HEPARIN SODIUM 1,000 UN/ML (10ML VL) ONE; -IOPAMIDOL-370 125ML BTL INJ ONE; -LIDOCAINE 1% INJ 10MG/ML (20 ML MDV) SQ ONE; -METOPROLOL PO SCH; +METOPROLOL SUCCINATE (ER) 25 MG TAB.ER.24H PO SCH; +MIDAZOLAM 2 MG/2 ML VIAL IV PRN; -MIDAZOLAM 2 MG/2 ML VIAL IVP ONE; -MIDAZOLAM 2 MG/2 ML VIAL ONE; -NON-FORMULARY DRUG (Dextroamphetamine/Amphetamine [Adderall] 5 MG) PO SCH; +PANTOPRAZOLE 40 MG TABLET PO PRN; -SODIUM CHLORIDE 0.9% 1,000 ML in EMPTY BAG 1 BAG IV ONE; -diphenhydrAMINE 50 MG/ML 1 ML VIAL IVP ONE; -diphenhydrAMINE 50 MG/ML 1 ML VIAL ONE; -fentaNYL (PF) 50 MCG/ML 2 ML AMP IV ONE; +fentaNYL (PF) 50 MCG/ML 2 ML AMP IVP PRN; -fentaNYL (PF) 50 MCG/ML 2 ML AMP ONE; +lisinopriL 5 MG TAB PO SCH
[2025-02-27] MEDS: IV FLUID CONTINUATION 1,000 ML IV ONE ×2 (06:13→07:21)
[2025-02-27] MEDS: SODIUM CHLORIDE 0.9% 1,000 ML in EMPTY BAG 1 BAG IV SCH (06:15)
[2025-02-27] MEDS: ASPIRIN 325 MG TAB PO STA (06:15)
[2025-02-27 06:42] LABS: Basophils # (A) 0.05 10*3/uL (0.00-0.10); Basophils % (A) 0.9 %; Eosinophils # (A) 0.17 10*3/uL (0.04-0.35); Eosinophils % (A) 2.9 %; HCT 38.3 % (37.2-46.3); HGB 13.2 g/dL (12.0-15.0); Lymphocytes # (A) 1.85 10*3/uL (0.90-5.00); Lymphocytes % (A) 31.7 %; MCH 31.3 pg (27.0-32.0); MCHC 34.5 g/dL (32.0-37.0); MCV 90.8 fL (80.0-97.0); Mean Platelet Volume 9.5 fL (9.5-12.2); Monocytes # (A) 0.42 10*3/uL (0.20-1.00); Monocytes % (A) 7.2 %; Neutrophils # (A) 3.34 10*3/uL (1.80-7.70); Neutrophils % (A) 57.3 %; Platelet Count 204 10*3/uL (140-440); RBC 4.22 10*6/uL (4.10-5.20); RDW 13.2 % (11.5-14.5); WBC 5.83 10*3/uL (4.50-10.00)
[2025-02-27 06:52] LABS: African American GFR (CKD) >90 (>60 ml/min/1.73 sqM); Anion Gap 9 mmol/L; Blood Urea Nitrogen 16 mg/dL (7-17); Calcium 9.5 mg/dL (8.4-10.2); Carbon Dioxide 23 mmol/L (22-30); Chloride 106 mmol/L (98-107); Glucose 103 mg/dL (74-99); Non-African American GFR(CKD) 89 (>60 ml/min/1.73 sqM); Potassium 4.2 mmol/L (3.5-5.1); Sodium 138 mmol/L (137-145)
[2025-02-27 06:53] VITALS: TEMP 98
[2025-02-27] MEDS: HEPARIN SODIUM,PORCINE 10,000 UNIT in SODIUM CHLORIDE 0.9% 1,000 ML IRRIGATION PRN (07:25)
[2025-02-27] MEDS: HEPARIN SODIUM,PORCINE (1 ML) 2,500 UNIT in SODIUM CHLORIDE 0.9% 250 ML IRRIGATION PRN (07:26)
[2025-02-27] MEDS: BENZOCAINE SPRAY 1 EACH MM ONE ×2 (07:32→07:41)
[2025-02-27] MEDS: fentaNYL (PF) 50 MCG/ML 2 ML AMP IVP ONE (07:40)
[2025-02-27] MEDS: MIDAZOLAM 2 MG/2 ML VIAL IVP ONE ×2 (07:40→07:42)
--- NOTE | 2025-02-27 08:00 | P.PCN ---
Date of Procedure: 02/27/25 Description of Procedure: Indication: Aortic stenosis Procedure Description: After explaining the procedure to the patient, it's risk and complications, blood pressure, heart rate and O2 saturation were monitored. The throat was sprayed with Cetacaine. Patient received 2 mg intravenous Versed, 50 mcg intra venous fentanyl. The probe was introduced into the esophagus without difficulty. Images were obtained. Following that, the probe was removed. There was no immediate complication. Findings: Left atrial size is mildly dilated, left atrial appendage is normal. Left ventricular size is normal. The overall systolic function is moderately impaired with an ejection fraction of 35 to 40% with global hypokinesis. Mild mitral annulus calcification was noted. The aortic valve is a tricuspid valve with severe calcification and reduced opening. By planimetry the valve area is 0.6 cm. The tricuspid valve appears to be normal. Descending thoracic aorta is normal. No pericardial effusion was noted. Contrast bubble study revealed no shunting across the interatrial septum with Valsalva maneuver. Doppler: Pulse wave and color Doppler were obtained, and revealed moderate aortic with mild to moderate mitral regurgitation and mild tricuspid regurgitation. The peak gradient across the aortic valve was 52 mmHg with a mean of 33 mmHg. There was no shunting by color Doppler study. Conclusion: 1. Dilated left atrium 2. Normal ventricle size with moderate global hypokinesis 3. Severe aortic stenosis with moderate aortic regurgitation 4. Mild to moderate mitral regurgitation 5. No shunting across the interatrial septum Duration of sedation 15 minutes.
[2025-02-27] MEDS: LIDOCAINE 1% INJ 10MG/ML (20 ML MDV) SQ ONE (08:03)
[2025-02-27] MEDS: VERAPAMIL SYRINGE (5 MG/10 ML) INTRAARTER ONE (08:06)
[2025-02-27] MEDS: HEPARIN SODIUM 1,000 UN/ML (10ML VL) IV ONE (08:22)
[2025-02-27 08:32] LABS: O2 Sat Blood Gas 72.5 %
[2025-02-27] MEDS: IOPAMIDOL-370 100ML BTL INJ ONE (08:34)
[2025-02-27 08:35] LABS: O2 Sat Blood Gas 73.7 %
--- NOTE | 2025-02-27 08:54 | P.CARDCATH ---
Date of Procedure: 02/27/25 Description of Procedure: Cardiac Catheterization: The patient is a 74-year-old female with history of hyperlipidemia, history of aortic stenosis who had a drop in her ejection fraction with an increase in her gradient with dobutamine stress echocardiogram. Recommendations were made regarding cardiac catheterization, the risks and the complications were discussed with the patient who is in full understanding and agreement. Procedure Description: Patient was brought to organic lab worker in fasting semi-sedated state after receiving Fentanyl and Benadryl achieiving moderate conscious sedated state. Using Xylocaine Anesthesia and modified Seldinger technique, a 6-Cambodian sheath was introduced in the right radial artery . The right brachial venous access in the basilic vein was exchanged to a 6 Cambodian sheath. Right heart catheterization using [place]-Hui catheter was performed. Cardiac output by thermodilution was calculated. Multiple samples were obtained. Subsequently, selective coronary angiography was performed using a 5-Cambodian 3.5 bend Home catheter. Multiple views of the coronary artery including hemiaxial views were obtained. The right Home catheter was used to cross the aortic valve and LVEDP was calculated. Following that, catheter and sheath were removed. Hemostasis was obtained with deployment of vascular band . There was no immediate complication. Patient was returned to room in stable condition. Of note, the patient received a total of 4000 units of intravenous heparin as well as intra-arterial verapamil. Findings: Fluoroscopy: Calcification of the aortic valve and the LAD was noted Left main: This is a large size vessel, bifurcating to LAD and left circumflex, the proximal left main has a 20 to 30% plaque, the rest of the vessel has no high-grade stenosis LAD: This is a large size vessel, reaching to the apex with a wraparound apex segment giving rise to 2 diagonal branch, the second 1 is in the midsegment and large in caliber. The LAD in the midsegment has mild intimal disease of 10 to 20% with no high-grade stenosis Left circumflex: This is a nondominant vessel giving rise to 3 obtuse marginal branch the left circumflex has mild intimal disease in the midsegment with no high-grade stenosis RCA: This is a dominant vessel bifurcating distally to PDA and PLV. The mid RCA has a 20 to 30% plaque with no high-grade stenosis Left Ventriculogram: Not performed Hemodynamics: Cardiac output by Asim 6.5 L/min with an index of 3.8 L/min/m. Cardiac output by thermodilution 5.3 L/min with an index of 3.1 L/min/m. Pulmonary artery saturation 73% right atrium 74% arterial 96%. Pulmonary artery systolic 34, diastolic 18 with a mean of 24 mmHg, pulmonary capillary wedge pressure A-wave of 15 V wave of 16 with a mean of 12 mmHg. Right ventricular systolic pressure of 34 with end-diastolic of 10 mmHg. Right atrium A wave of 10 V wave of 9 with a mean of 8 mmHg, LVEDP was 20 mmHg. Peak to peak gradient of 21 mmHg across the aortic valve. Conclusion: 1. Calcified coronary arteries and aortic valve 2. Mild triple-vessel disease 3. Moderate aortic stenosis by cardiac catheterization 4. Right dominance Recommendations: I would recommend continue medical therapy, on her CHAVEZ the aortic valve mean gradient was 33 m mercury with a peak of 52 mmHg and impairment of systolic function suggestive of low-flow severe aortic stenosis, she will be evaluated for possible aortic valve replacement in view of the drop in the ejection fraction and her symptoms. The findings and the recommendations were discussed with the patient and the family and they were in full understanding and agreement. Duration of sedation is 32 minutes.
[2025-02-27 11:53] VITALS: PULSE 68
[2025-02-27 11:55] VITALS: BP 107/48; RESP 16
== END | disposition home or self-care (01) ==
LOC: CATHCVL 05:45
PROVIDERS: ATTEND Internal Medicine Interventional Cardiology
DX: I25.10 Atherosclerotic heart disease of native coronary artery without angina pectoris (principal); I42.8 Other cardiomyopathies; I08.0 Rheumatic disorders of both mitral and aortic valves; E78.5 Hyperlipidemia, unspecified; Z88.8 Allergy status to other drugs, medicaments and biological substances; Z79.02 Long term (current) use of antithrombotics/antiplatelets; Z79.899 Other long term (current) drug therapy
CPT/HCPCS: 93312; 93320; 93325; 93460; 80048; 85018; 82810; 85025; 99152; C1769 ×3; C1894; C1751; J2250; J1644 ×3; J2003; J3010; Q9967

== ENCOUNTER → 2025-04-02 | Outpatient (CLI) | payer MEDICARE ==
[2025-04-02 09:51] LABS: ALT 16 U/L (4-34); AST 26 U/L (14-36); African American GFR (CKD) >90 (>60 ml/min/1.73 sqM); Albumin 4.3 g/dL (3.5-5.0); Albumin/Globulin Ratio 1.7; Alkaline Phosphatase 84 U/L (38-126); Anion Gap 10 mmol/L; Blood Urea Nitrogen 19 mg/dL (7-17); Calcium 9.4 mg/dL (8.4-10.2); Carbon Dioxide 27 mmol/L (22-30); Chloride 103 mmol/L (98-107); Globulin 2.6 g/dL; Glucose 98 mg/dL (74-99); Non-African American GFR(CKD) 87 (>60 ml/min/1.73 sqM); Potassium 4.6 mmol/L (3.5-5.1); Sodium 140 mmol/L (137-145); Total Protein 6.9 g/dL (6.3-8.2)
[2025-04-02 10:35] LABS: INR 1.0 (<1.2); Partial Thromboplastin Time 21.6 sec (22.0-30.0); Prothrombin Time 10.6 sec (10.0-12.5)
--- NOTE | 2025-04-02 11:32 | US ---
EXAMINATION TYPE: US carotid duplex BILAT DATE OF EXAM: 04/02/2025 COMPARISON: NONE CLINICAL INDICATION: Female, 74 years old with history of I25.10, I35.1 NONRHEUMATIC AORTIC (VALVE) I NSUFFIC; open heart Additional History: .... TECHNIQUE: Grayscale, color Doppler and spectral Doppler evaluation of the bilateral carotid systems and vertebral arteries. Indirect Doppler criteria was utilized. FINDINGS: EXAM MEASUREMENTS: RIGHT: Peak Systolic Velocity (PSV) cm/sec ----- Right CCA: 77.3 ----- Right ICA: 149 ----- Right ECA: 114 ICA/CCA ratio: 1.9 RIGHT: End Diastole cm/sec ----- Right CCA: 18.8 ----- Right ICA: 43.5 ----- Right ECA: 6.34 LEFT: Peak Systolic Velocity (PSV) cm/sec ----- Left CCA: 91.5 ----- Left ICA: 103 ----- Left ECA: 94.2 ICA/CCA ratio: 1.1 LEFT: End Diastole cm/sec ----- Left CCA: 20.8 ----- Left ICA: 34.4 ----- Left ECA: 18.1 VERTEBRALS (direction of flow): Right Vertebral: Antegrade Left Vertebral: Antegrade Rhythm: Normal [employer] ADMINISTRATOR NOTES: No significant stenosis seen Color Doppler imaging shows patency with blood flow throughout the carotid artery. Spectral waveforms are within normal limits. IMPRESSION: Right: No hemodynamically significant stenosis. Left: No hemodynamically significant stenosis. Criteria for Assigning % of Stenosis / Diameter reduction (Estimation based on the indirect measurements of the internal carotid artery velocities (ICA PSV). 1. Normal (no stenosis)=ICA PSV < 180 cm/s: ratio < 2.0: ICA EDV<40 cm/s. 2. Less than 50% stenosis=ICA PSV < 180 cm/s: ratio < 2.0: ICA EDV<40 cm/s. 3. 50 to 69% stenosis=ICA PSV of 180 to 230 cm/s: ration 2.0 ? 4.0: ICA EDV 40-100 cm/s. PSV 125-180 cm/sec and ICA/CCA PSV Ratio ? 2.0 is also consistent with 50-69% stenosis 4. Greater than 70% stenosis to near occlusion= ICA PSV > 230 cm/s: ratio > 4.0: ICA EDV > 100 cm/s. 5. Near occlusion= ICA PSV velocities may be low or undetectable: variable ratio and ICA EDV. 6. Total occlusion=unable to detect flow. [facility], , 04/02/2025 11:29 AM
--- NOTE | 2025-04-02 11:36 | CT ---
EXAMINATION TYPE: CT TAVR Planning CTA scan of the Neck, chest, abdomen and pelvis is performed DATE OF EXAM: 04/02/2025 COMPARISON: CLINICAL INDICATION: Female, 74 years old with history of I25.10, I35.1 NONRHEUMATIC AORTIC (VALVE) I NSUFFIC; pre op TAVR TECHNIQUE: CTA scan of the Neck, chest, abdomen and pelvis is performed with IV contrast; Helical imaging obtain ed through the chest, abdomen and pelvis during arterial phase dynamic administration of radiographic contrast intravenously. MIP imaging performed on a [employer] work station and submitted for review. CONTRAST: 155ml mL of Isovue 370. CT DLP: 1687.60 mGycm, Automated exposure control for dose reduction was used. CT CTDI: mGy FINDINGS: See report from [employer] regarding preprocedural planning HEART AND PERICARDIUM: Heart is normal in size. There is no pericardial effusion. AV Calcification Severity: ARTERIAL VASCULATURE: The aortic arch and thoracic aorta demonstrate a normal course and caliber. The pulmonary outflow tra ct appears within normal limits for size. The thoracic aorta is normal in course and caliber. There is no evidence of aortic dissection, aneurysm or acute aortic injury. Great arch vessels patent and n ormal in course and caliber. PULMONARY ARTERIAL VASCULATURE: Normal caliber., No evidence for central filling defect. NECK AND THYROID: No significant findings. The carotid bifurcations are patent. CHEST: LUNGS: LARGE AIRWAYS: Central airways are patent. PLEURAL: No pleural effusion or thickening. No pneumothorax. MEDIASTINUM AND ANA: No mediastinal or hilar lymphadenopathy or soft tissue mass. SOFT TISSUES/LYMPH NODES: Unremarkable.Normal. MUSCULOSKELETAL: No acute osseous abnormalities ABDOMEN/PELVIS: Please note arterial phase of the imaging limits detailed evaluation of the solid abdominal organs. ABDOMEN LIVER: Unremarkable GALLBLADDER AND BILE DUCTS: Unremarkable. PANCREAS: Unremarkable. SPLEEN: Unremarkable. ADRENAL GLANDS: Unremarkable. KIDNEYS AND URETERS: No evidence of hydronephrosis or renal calculus. The ureters are unremarkable. PELVIS BLADDER: Unremarkable REPRODUCTIVE: Unremarkable. ABDOMEN & PELVIS STOMACH AND BOWEL: No evidence of bowel obstruction. PERITONEUM/RETROPERITONEUM: No evidence of pneumoperitoneum or free fluid. VASCULATURE: No evidence of aortic aneurysm. MUSCULOSKELETAL: No acute osseous abnormalities LYMPH NODES: No gross evidence for lymphadenopathy. SOFT TISSUE/ABDOMINAL WALL: Unremarkable Other Lines/Tubes/Devices/Hardware: None IMPRESSION: 1. Mild calcifications of the aortic valve. 2. No acute process. 3. See report from [employer] regarding preprocedural planning [facility], , 04/02/2025 11:34 AM
[2025-04-02 15:15] LABS: Basophils # (A) 0.06 X 10*3/uL (0.00-0.10); Basophils % (A) 1.0 %; Eosinophils # (A) 0.16 X 10*3/uL (0.04-0.35); Eosinophils % (A) 2.6 %; HCT 41.5 % (37.2-46.3); HGB 13.1 g/dL (12.0-15.0); Immature Grans, Automated 0.30 %; Lymphocytes # (A) 1.83 X 10*3/uL (0.90-5.00); Lymphocytes % (A) 30.2 %; MCH 29.8 pg (27.0-32.0); MCHC 31.6 g/dL (32.0-37.0); MCV 94.5 FL (80.0-97.0); Monocytes # (A) 0.38 X 10*3/uL (0.20-1.00); Monocytes % (A) 6.3 %; NRBC Per 100 WBC 0 X 10*3/uL (0.00-0.01); Neutrophils # (A) 3.60 X 10*3/uL (1.80-7.70); Neutrophils % (A) 59.6 %; Platelet Count 207 X 10*3/uL (140-440); RBC 4.39 X 10*6/uL (4.10-5.20); RDW 13.2 % (11.5-14.5); WBC 6.05 X 10*3/uL (4.50-10.00)
[2025-04-02 15:21] LABS: NT-Pro-B-Type Natriuretic Pept 769 pg/mL (0-125)
[2025-04-02 15:37] LABS: Cholesterol 153.00 mg/dL (0.00-200.00); HDL Cholesterol 68.10 mg/dL (40.00-60.00); LDL Cholesterol,Calculated 67.8 mg/dL (0.0-131.0); Magnesium 2.1 mg/dL (1.5-2.4); Triglycerides 85.30 mg/dL (0.00-149.00); VLDL Calculation 17.06 mg/dL (5.00-40.00)
[2025-04-02 15:57] LABS: ALT 18 U/L (8-44); Albumin 4.3 g/dL (3.8-4.9); Albumin/Globulin Ratio 1.87 Ratio (1.60-3.17); Alkaline Phosphatase 84 U/L (41-126); Bilirubin,Unconjugated >0.10 mg/dL (0.20-1.00); Globulin 2.3 g/dL (1.6-3.3); Total Protein 6.6 g/dL (6.2-8.2)
[2025-04-02 16:10] LABS: Bacteria,Urine None Seen (None Seen)
[2025-04-02 16:11] LABS: Bilirubin,Urine Negative (Negative); Blood,Urine Negative (Negative); Color,Urine Yellow (Yellow); Ketones,Urine Negative (Negative); Nitrite,Urine Negative (Negative); PH, Urine 6.0; Specific Gravity,Urine >1.035 (1.001-1.030); Urobilinogen,Urine 0.2
== END | disposition home or self-care (01) ==
LOC: LABWHC1 08:33
PROVIDERS: ATTEND Thoracic Surgery (Cardiothoracic Vascular Surgery)
DX: Z01.818 Encounter for other preprocedural examination (principal); I35.1 Nonrheumatic aortic (valve) insufficiency; I70.0 Atherosclerosis of aorta; I25.10 Atherosclerotic heart disease of native coronary artery without angina pectoris; E87.8 Other disorders of electrolyte and fluid balance, not elsewhere classified; E07.9 Disorder of thyroid, unspecified; E11.9 Type 2 diabetes mellitus without complications; E78.5 Hyperlipidemia, unspecified; N28.9 Disorder of kidney and ureter, unspecified; R58 Hemorrhage, not elsewhere classified; R35.0 Frequency of micturition; Z79.01 Long term (current) use of anticoagulants; Z79.899 Other long term (current) drug therapy
CPT/HCPCS: 83880; 80061; 80053; 80076; 84443; 83735; 85025; 85610; 85730; 81001; 87086; 83036; 93880; 71275; 36415 ×2; 74174; Q9967